=== PATIENT | male | born 1965 | race Caucasian/White ===

== ENCOUNTER 2017-06-09 04:56 | Emergency (ER) | payer BC ==
[~2017-06-09] VITALS: Ht 180.3 cm; Wt 81.8 kg
[~2017-06-09 04:56] MED LIST: AUGMENTIN875 MG PO; HYDROCODON-ACE1 EA11 PO; LOPRESSOR25 MG PO; METOPROLOL SUCC25 MG PO; MOTRIN IB200 MG PO; NOHOMEMEDS; VERAPAMIL HCL80 MG PO
[2017-06-09 05:47] LABS: HEMATOCRIT 47.9 % (38.0-50.0); MCH 29.3 PG (29.0-34.0); MCHC 34.4 G/DL (30.0-36.0); MCV 84.9 FL (86-99); MEAN PLAT.VOLUME 10.1 uM^3 (9.0-12.4); PLATELET COUNT 223 K/uL (156-360); RBC DIS.WIDTH-CV 12.4 % (11.8-14.6); RBC DIS.WIDTH-SD 37.8 % (39-53); RED BLOOD COUNT 5.64 M/uL (4.00-5.50); WHITE BLOOD COUNT 7.5 K/uL (4.1-10.2)
[2017-06-09 05:50] LABS: CHLORIDE 107 mEq/L (99-109); POTASSIUM 4.3 mEq/L (3.7-5.4); SODIUM 142 mEq/L (136-147)
[2017-06-09 05:51] LABS: GLUCOSE 105 mg/dL (70-99)
[2017-06-09 05:53] LABS: ANION GAP 9 MEQ/L (2-14)
[2017-06-09 05:55] LABS: GFR ESTIMATE (CALCULATED) > 59 mL/min/
[2017-06-09 05:56] LABS: UREA NITROGEN (BUN) 17 mg/dL (9-23)
[2017-06-09 06:01] LABS: TROP-I INTERPRETATION NEGATIVE; TROPONIN-I < 0.01 ng/mL (0.0-0.30)
[2017-06-09 09:28] VITALS: BP 125/77
== END 2017-06-09 09:32 | disposition home or self-care (01) ==
LOC: EME 04:56
DX: I48.91 Unspecified atrial fibrillation (principal)
CPT/HCPCS: 71020; 80048; 84484; 85027; 93005; 99281; 99285

== ENCOUNTER 2017-06-18 15:20 | Emergency (ER) | payer BC ==
[~2017-06-18] VITALS: Ht 180.3 cm; Wt 82.8 kg
[2017-06-18 15:54] LABS: BASOPHIL COUNT 0.1 K/uL (0-0.1); EOSINOPHIL (%) 2.9 % (0-5); EOSINOPHIL COUNT 0.3 K/uL (0-0.3); IMMATURE GRANULOCYTE (%) 0.3 % (0.0-0.7); INSTRUMENT ABS NEUTROPHIL CT 5.8 K/uL; MCH 28.8 PG (29.0-34.0); MCHC 34.5 G/DL (30.0-36.0); MCV 83.5 FL (86-99); MEAN PLAT.VOLUME 10.7 uM^3 (9.0-12.4); MONOCYTE (%) 7.8 % (3-12); MONOCYTE COUNT 0.7 K/uL (0-0.8); NEUTROPHIL (%) 65.9 % (45-76); NEUTROPHIL COUNT 5.8 K/uL (1.8-6.4); PLATELET COUNT 221 K/uL (156-360); RBC DIS.WIDTH-CV 12.3 % (11.8-14.6); RBC DIS.WIDTH-SD 37.2 % (39-53); RED BLOOD COUNT 5.87 M/uL (4.00-5.50); WHITE BLOOD COUNT 8.8 K/uL (4.1-10.2)
[2017-06-18 16:11] LABS: CHLORIDE 109 mEq/L (99-109); POTASSIUM 4.2 mEq/L (3.7-5.4); SODIUM 143 mEq/L (136-147)
[2017-06-18 16:12] LABS: MAGNESIUM 2.6 mg/dL (1.3-2.7); TROP-I INTERPRETATION NEGATIVE; TROPONIN-I < 0.01 ng/mL (0.0-0.30)
[2017-06-18 16:14] LABS: GLUCOSE 103 mg/dL (70-99)
[2017-06-18 16:15] LABS: ANION GAP 9 MEQ/L (2-14)
[2017-06-18 16:16] LABS: TOTAL BILIRUBIN 0.5 mg/dL (0.0-1.0)
[2017-06-18 16:17] LABS: ALKALINE PHOSPHATASE 58 IU/L (3-129); GFR ESTIMATE (CALCULATED) > 59 mL/min/ (58.99-99999)
[2017-06-18 16:19] LABS: UREA NITROGEN (BUN) 13 mg/dL (9-23)
[2017-06-18 18:40] VITALS: BP 114/78
== END 2017-06-18 18:41 | disposition home or self-care (01) ==
LOC: EME 15:20
PROVIDERS: Emergency Medicine
DX: I48.91 Unspecified atrial fibrillation (principal)
CPT/HCPCS: 80053; 83735; 84484; 85025; 93005; 99281; 99285; J7040